=== PATIENT | female | born 1995 | race Caucasian/White ===

== ENCOUNTER 2020-12-16 11:05 | Outpatient (RCR) | payer BC, SELFPAY ==
[2020-12-16 12:41] LABS: Basophils Percent Auto 0.2 % (0.2-1.2); Eosinophils Absolute Auto 0.3 K/mm3 (0-0.3); Eosinophils Percent Auto 2.1 % (0-4.4); Hematocrit 34.1 % (37.0-47.0); Hemoglobin 11.2 g/dL (12.0-15.0); Immature Granulocyte Absolute 0.13 K/mm3 (0.00-0.031); Lymphocytes Absolute Auto 1.53 K/mm3 (0.9-3.2); Lymphocytes Percent Auto 11.8 % (18.3-44.2); Mean Corpuscular HGB Conc 32.8 g/dl (32-36); Mean Corpuscular Hemoglobin 29.4 pg (26-34); Mean Corpuscular Volume 89.5 fl (80-100); Mean Platelet Volume 9.9 fl (7.4-10.4); Monocytes Absolute Auto 0.7 K/mm3 (0.1-0.6); Monocytes Percent Auto 5.6 % (2.6-8.5); Neutrophils Absolute Auto 10.3 K/mm3 (1.3-6.7); Neutrophils Percent Auto 79.3 % (45.5-73.1); Platelet Count Result 301 k/mm3 (150-375); Red Blood Count 3.81 M/mm3 (4.2-5.4); Red Cell Distribution Width 13.5 % (11.5-14.5)
[2020-12-16 12:49] LABS: Glucose 1 Hour PP 50gm Dose 131 mg/dL
[2020-12-18] MEDS: RHO(D) IMMUNE GLOBULIN 300 MCG/2 ML SYRINGE IM (10:01)
== END 2021-03-16 23:59 | disposition home or self-care (01) ==
LOC: ANHLAB 11:05
PROVIDERS: Visit Provider Student in an Organized Health Care Education/Training Program
DX: Z29.13 Encounter for prophylactic Rho(D) immune globulin (principal); O36.0120 Maternal care for anti-D [Rh] antibodies, second trimester, not applicable or unspecified; Z3A.00 Weeks of gestation of pregnancy not specified
CPT/HCPCS: 36415; 82947; 85025; 85461; 90384; 96372; J2790

== ENCOUNTER 2021-01-04 08:00 | Outpatient (CLI) | payer BC, SELFPAY ==
[2021-01-04 09:00] LABS: Glucose Fasting Gestational 79 mg/dL (>/=95)
[2021-01-04 10:32] LABS: Glucose 1 Hour Gest 154 mg/dL (>/=180)
[2021-01-04 11:32] LABS: Glucose 2 Hour Gest 132 mg/dL (>/= 155)
[2021-01-04 12:45] LABS: Glucose 3 Hour Gest 102 mg/dL (>/=140)
== END 2021-01-04 08:01 | disposition home or self-care (01) ==
PROVIDERS: Visit Provider Student in an Organized Health Care Education/Training Program
DX: O24.419 Gestational diabetes mellitus in pregnancy, unspecified control (principal); Z3A.00 Weeks of gestation of pregnancy not specified
CPT/HCPCS: 36415; 82951; 82952

== ENCOUNTER 2021-01-20 10:08 | Outpatient (CLI) | payer BC, SELFPAY ==
[2021-01-20 11:04] LABS: Basophils Percent Auto 0.3 % (0.2-1.2); Eosinophils Absolute Auto 0.3 K/mm3 (0-0.3); Eosinophils Percent Auto 2.6 % (0-4.4); Hematocrit 34.7 % (37.0-47.0); Hemoglobin 11.3 g/dL (12.0-15.0); Immature Granulocyte Absolute 0.18 K/mm3 (0.00-0.031); Immature Granulocyte Percent A 1.4 % (0-0.5); Lymphocytes Absolute Auto 1.71 K/mm3 (0.9-3.2); Lymphocytes Percent Auto 13.3 % (18.3-44.2); Mean Corpuscular HGB Conc 32.6 g/dl (32-36); Mean Corpuscular Hemoglobin 29.1 pg (26-34); Mean Corpuscular Volume 89.4 fl (80-100); Mean Platelet Volume 10.3 fl (7.4-10.4); Monocytes Absolute Auto 1.1 K/mm3 (0.1-0.6); Monocytes Percent Auto 8.8 % (2.6-8.5); Neutrophils Absolute Auto 9.5 K/mm3 (1.3-6.7); Neutrophils Percent Auto 73.6 % (45.5-73.1); Platelet Count Result 315 k/mm3 (150-375); Red Blood Count 3.88 M/mm3 (4.2-5.4); Red Cell Distribution Width 13.8 % (11.5-14.5); White Blood Count 12.9 K/mm3 (4.5-10.0)
[2021-01-20 11:18] LABS: HIV 1/2 Ab P24 Ag Result Negative (Negative)
[2021-01-22 09:27] LABS: Rapid Plasma Reagin Non-Reactive (NonReactive)
== END 2021-01-20 10:09 | disposition home or self-care (01) ==
LOC: ANHLAB 10:11
PROVIDERS: Visit Provider Student in an Organized Health Care Education/Training Program
DX: Z34.93 Encounter for supervision of normal pregnancy, unspecified, third trimester (principal); Z3A.33 33 weeks gestation of pregnancy
CPT/HCPCS: 36415; 85025; 86592; 86703; G0432

== ENCOUNTER 2021-02-21 22:18 | Observation (INO) | payer BC, SELFPAY ==
[2021-02-21 23:16] VITALS: BP 113/61; PULSE 113
[2021-02-21 23:31] VITALS: BP 107/65; PULSE 115
[2021-02-21] MEDS: ONDANSETRON HCL ODT 4 MG TABLET PO (23:36)
[2021-02-21 23:46] VITALS: BP 118/68; PULSE 114
[2021-02-21 23:56] VITALS: BMI 46.0
--- NOTE | 2021-02-21 23:56 | LDADM ---
This patient, Salomon Salazar, was admitted to Labor/Delivery/Recovery 106 on 02/21/21 at 22:18. Plans for labor, pain management and were discussed with patient. Patient/family oriented to hospital policies and general routines including ID bracelet, bed and alarms, visiting hours, pain management, procedures, bathroom and other care routines, personal items, smoking policy, room service/diet and guest tray routines, security routines, and visiting hours. Patient/Family are encouraged to report perceived risks to care and to ask questions if they do not understand what they are told or what they should do. See OBIX for further documentation.
--- NOTE | 2021-03-29 17:42 | PM.OBTRLD ---
OB - Triage/Final Diagnosis Visit Information Comments/Additional reasons for admission: I have assessed the risk for this patient, Salomon Salazar, and determined that she would benefit from observation care. Final Diagnosis (1) Back pain affecting in third trimester: Code(s): O99.891 - Other specified diseases and conditions complicating ; M54.9 - Dorsalgia, unspecified Status: Acute
== END 2021-02-22 00:07 | disposition home or self-care (01) ==
PROVIDERS: Admitting Provider Student in an Organized Health Care Education/Training Program; Visit Provider Student in an Organized Health Care Education/Training Program
DX: O99.891 Other specified diseases and conditions complicating pregnancy (principal); M54.9 Dorsalgia, unspecified; Z3A.37 37 weeks gestation of pregnancy
CPT/HCPCS: A9270; G0378; G0379

== ENCOUNTER 2021-03-07 18:56 | Inpatient (IN) | payer BC, SELFPAY ==
--- NOTE | 2021-03-07 19:36 | PM.IMHP ---
H&P: HPI History of Present Illness Date/Time: 03/07/21 19:36 Patient is a 25yo LMP 06/04/20 currently 39w3d gestation with MINERVA 03/11/21. Patient is dated by US on 08/09/20 at 8w gestation. Patient presents to L&D for an elective induction of labor. course has been relatively uncomplicated, however, there is some concern for size greater than dates fetus. EFW >99% (4350g) on most recent ultrasound from 03/06/21. In general, patient reports feeling well. Denies any vaginal bleeding or leakage of fluid. Report occasional contractions and good movement. Chief Complaint: Induction of labor Review of Systems Review of Systems: All systems reviewed & are unremarkable except as noted in HPI and below Constitutional: Constitutional: Reports as per HPI, Reports no additional constitutional complaints, Denies chills, Denies fever(s), Denies headache(s) and Denies night sweats Eyes: Eyes: Reports as per HPI and Reports no additional eye complaints ENT: Reports system reviewed and no additional complaints, except as documented, Reports as per HPI, Reports Normal hearing present and Denies headache(s) Cardiovascular: Cardiovascular: Reports as per HPI, Reports no additional cardiovascular complaints, Denies chest pain and Denies dyspnea Respiratory: Respiratory: Reports as per HPI, Reports no additional respiratory complaints, Denies cough and Denies dyspnea Gastrointestinal: Gastrointestinal: Reports as per HPI, Reports no additional gastrointestinal complaints, Denies abdominal pain, Denies change in bowel habits, Denies change in stool character, Denies nausea and Denies vomiting Genitourinary: Genitourinary: Reports no additional female genitourinary complaints, Reports as per HPI, Denies abnormal vaginal bleeding, Denies genital lesions, Denies hot flashes, Denies dyspareunia, Denies pelvic pain, Denies sexual dysfunction, Denies urinary incontinence, Denies vaginal discharge, Denies vaginal dryness and Denies vaginal odor Musculoskeletal: Musculoskeletal: Reports no additional musculoskeletal complaints and Reports as per HPI Integumentary/Breasts: Skin/Breast: Reports system reviewed and no additional complaints, except as docu, Reports as per HPI, Denies breast pain and Denies nipple discharge Neurologic: Reports system reviewed and no additional complaints, except as documented, Reports as per HPI, Reports Normal hearing present and Denies headache(s) Psychiatric: Psychiatric: Reports no additional psychiatric complaints, Reports as per HPI, Denies anxiety and Denies depression Endocrine: Endocrine: Reports no additional endocrine complaints and Reports as per HPI Hematologic/Lymphatic: Hematologic/Lymphatic: Reports no additional hematologic/lymphatic complaints and Reports as per HPI Allergic/Immunologic: Allergic/Immunologic: Reports no additional allergic/immunologic complaints and Reports as per HPI PMFSH Past Medical History Medical History Seasonal allergies Surgical History Surgical History History of tonsillectomy and adenoidectomy Family History Family History Grandparent Hypertension Cerebrovascular accident Pancreatic cancer Mother Hypertension Cerebrovascular accident Father Hypertension Other Diabetes mellitus Social History Social History Smoking status: Never smoker Alcohol intake: former Substance use: never Gender identity (if verbalized by the patient): Female Spiritual care concerns: No Meds Home Medications and Allergies Home Medications Medication Instructions Recorded Confirmed Type loratadine 10 mg tablet 10 mg PO DAILY PRN 08/03/20 02/09/21 History prenat.vits,grey,fhu-[id number] 1 tablet PO DAILY 08/03/20 02/09/21 History acetaminophen 500 mg tablet 50
--- NOTE | 2021-03-07 19:47 | WPDHPUPDATE1 ---
History and Physical Update Update Date/Time: 03/07/21 19:47 History and Physical has been reviewed, including an updated exam of the patient. There are NO changes in the patient's condition. Risks, benefits, and alternatives have been discussed and questions answered. Patient agrees to proceed with procedure.
[2021-03-07] MEDS: DINOPROSTONE 10 MG VAG INSERT VAGINAL (20:00)
[2021-03-07 20:04] LABS: Basophils Percent Auto 0.2 % (0.2-1.2); Eosinophils Absolute Auto 0.3 K/mm3 (0-0.3); Eosinophils Percent Auto 2.1 % (0-4.4); Hematocrit 35.4 % (37.0-47.0); Hemoglobin 11.4 g/dL (12.0-15.0); Immature Granulocyte Absolute 0.07 K/mm3 (0.00-0.031); Immature Granulocyte Percent A 0.6 % (0-0.5); Lymphocytes Absolute Auto 1.42 K/mm3 (0.9-3.2); Lymphocytes Percent Auto 11.6 % (18.3-44.2); Mean Corpuscular HGB Conc 32.2 g/dl (32-36); Mean Corpuscular Hemoglobin 28.3 pg (26-34); Mean Corpuscular Volume 87.8 fl (80-100); Mean Platelet Volume 10.2 fl (7.4-10.4); Monocytes Absolute Auto 0.9 K/mm3 (0.1-0.6); Monocytes Percent Auto 7.3 % (2.6-8.5); Neutrophils Absolute Auto 9.5 K/mm3 (1.3-6.7); Neutrophils Percent Auto 78.2 % (45.5-73.1); Platelet Count Result 301 k/mm3 (150-375); Red Blood Count 4.03 M/mm3 (4.2-5.4); Red Cell Distribution Width 14.6 % (11.5-14.5); White Blood Count 12.2 K/mm3 (4.5-10.0)
[2021-03-07] MEDS: LACTATED RINGERS 1,000 ML 125 ML IV CONT (20:05)
[2021-03-07 20:15] VITALS: RESP 18; TEMP 36.9
--- NOTE | 2021-03-07 20:22 | P.PNAN_ITS ---
Anes - Eval Pre Procedure Procedure: labor epidural Date/Time: 03/07/21 20:22 Surgeon: shara Pre Op Diagnosis: IOL Patient Data Age: 25 Gender: F Height: Weight: Allergies Allergy/AdvReac Type Severity Reaction Status Date / Time Penicillins Allergy Intermediate Rash Verified 03/07/21 15:36 Home Medications Medication Instructions Recorded Confirmed Type loratadine 10 mg tablet 10 mg PO DAILY PRN 08/03/20 02/09/21 History prenat.vits,grey,[id number]-ravz-tmezg 1 tablet PO DAILY 08/03/20 02/09/21 History acetaminophen 500 mg tablet 500 mg PO Q6H PRN 11/08/20 02/09/21 History cholecalciferol (vitamin D3) 50 mcg PO DAILY 02/09/21 02/09/21 History [Vitamin D3] Laboratory Tests 03/07/21 03/07/21 19:47 19:48 WBC 12.2 K/mm3 H K/mm3 (4.5-10.0) RBC 4.03 M/mm3 L M/mm3 (4.2-5.4) Hgb 11.4 g/dL L g/dL (12.0-15.0) Hct 35.4 % L % (37.0-47.0) MCV 87.8 fl fl (80-100) MCH 28.3 pg pg (26-34) MCHC 32.2 g/dl g/dl (32-36) RDW 14.6 % H % (11.5-14.5) Plt Count 301 k/mm3 k/mm3 (150-375) MPV 10.2 fl fl (7.4-10.4) Immature Gran % (Auto) 0.6 % H % (0-0.5) Neut % (Auto) 78.2 % H % (45.5-73.1) Lymph % (Auto) 11.6 % L % (18.3-44.2) [place] % (Auto) 7.3 % % (2.6-8.5) Eos % (Auto) 2.1 % % (0-4.4) Baso % (Auto) 0.2 % % (0.2-1.2) Lymph # (Auto) 1.42 K/mm3 K/mm3 (0.9-3.2) [place] # (Auto) 0.9 K/mm3 H K/mm3 (0.1-0.6) Eos # (Auto) 0.3 K/mm3 K/mm3 (0-0.3) Baso # (Auto) 0.0 K/mm3 K/mm3 (0.0-0.1) Abs Immat Gran (auto) 0.07 K/mm3 H K/mm3 (0.00-0.031) Absolute Neuts (auto) 9.5 K/mm3 H K/mm3 (1.3-6.7) Absolute Nucleated RBC 0.0 K/mm3 K/mm3 (0.0-0.012) Nucleated RBC % 0.0 % % (0.0-0.2) RPR Pending Patient hx anesthesia problems: none Family hx anesthesia problems: none PMFSH Past Medical History Medical History Seasonal allergies Surgical History Surgical History History of tonsillectomy and adenoidectomy Family History Family History Grandparent Hypertension Cerebrovascular accident Pancreatic cancer Mother Hypertension Cerebrovascular accident Father Hypertension Other Diabetes mellitus Social History Social History Smoking status: Never smoker Alcohol intake: former Substance use: never Gender identity (if verbalized by the patient): Female Spiritual care concerns: No Exam Day of Procedure 03/07/21 20:22
[2021-03-07 20:29] VITALS: BMI 46.8
[2021-03-08] VITALS (176 sets, daily range): BP systolic 85–147; BP diastolic 41–114; PULSE 75–116; RESP 16–18; TEMP 36.6–37.4; O2SAT 97–100
[2021-03-08] MEDS: CLINDAMYCIN 900 MG/D5W 50 ML 900 MG/50 ML PIGGYBACK 50 MG IVPB ×3 (04:47→21:31)
[2021-03-08] MEDS: OXYTOCIN 30 UNITS/NS 500 ML 30 UNITS/500 ML BAG 6 UNITS IV CONT (08:38)
[2021-03-08] MEDS: LACTATED RINGERS 1,000 ML 125 ML IV CONT ×2 (12:10→21:32)
[2021-03-08 12:11] LABS: Rapid Plasma Reagin Non-Reactive (NonReactive)
[2021-03-08] MEDS: LORATADINE 10 MG TABLET PO (14:02)
--- NOTE | 2021-03-08 17:56 | P.PNOB_ITS ---
Pain Control Date/time seen: 03/08/21 17:56 Patient doing well. SROM clear fluid at approx. 5:40 p.m. SVE 4/60/-2. EFM 140/mod/+/-. [employer] shows occ ctx, however, may need IUPC for enhanced monitoring. Continue pitocin. Continuous EFM and toco. Pain management PRN.
[2021-03-08] MEDS: ONDANSETRON INJ 4 MG/2 ML VIAL IV PUSH (23:07)
[2021-03-09] VITALS (159 sets, daily range): BP systolic 60–162; BP diastolic 26–99; PULSE 87–166; RESP 16–20; TEMP 36.1–38.3; O2SAT 90–100
[2021-03-09] MEDS: OXYTOCIN 30 UNITS/NS 500 ML 30 UNITS/500 ML BAG 6 UNITS IV CONT (00:48)
[2021-03-09] MEDS: CLINDAMYCIN 900 MG/D5W 50 ML 900 MG/50 ML PIGGYBACK 50 MG IVPB (05:37)
--- NOTE | 2021-03-09 06:18 | PM.OBPNLAB ---
Pain Control Date/time seen: 03/09/21 06:18 Patient seen at bedside. SVE 6-7/80/-2. Despite more than 6 hours of pitocin, patient has made minimal cervical change. Lengthy discussion had with patient regarding labor course and limited progress with regards to both dilation as well as descensus of head, both of which had been previously discussed with patient. Recommendation made to proceed with delivery for arrest of dilation. Patient understands and agrees with plan. Anesthesia notified.
--- NOTE | 2021-03-09 07:01 | WPDANESEFPP ---
Anes - Eval Final PreProcedure Day of Procedure 03/09/21 07:01 Patient weight: morbidly obese Heart: regular rate and rhythm Lungs: clear to auscultation and normal air movement Airway: Mallampati scale class III Neurological: alert and oriented Last oral intake: >/= 8 hours ASA classification: III Emergent: no Anesthetic plan: proceed Anesthesia type and monitoring: regional epidural and standard monitoring Other findings: C -section - failure to progress Informed Consent: The patient's anesthetic plan and its attendant risks and benefits were discussed with the patient/family/POA. Questions were solicited and answers provided to the satisfaction of the patient/family/POA.
[2021-03-09] MEDS: ceFAZolin 3 GM/D5W 100 ML 100 ML IVPB (07:48)
--- NOTE | 2021-03-09 09:01 | W.PM.PROC2 ---
Procedure Note - Detailed Date of Procedure 03/09/21 Pre-op Diagnosis Intrauterine at 39w5d gestation Arrest of dilation Post-op Diagnosis same Procedure Performed Primary low transverse section via Pfannenstiel Surgeon Arlene Umanzor MD Surveillance Director [place] Anesthesia epidural Findings Live male infant in cephalic presentation, weighing 7 lbs. 8 oz, apgars 9/9, minimal amount of clear amniotic fluid noted; normal appearing uterus, ovaries, and fallopian tubes bilaterally Description of Procedure The patient was taken to the operating room, where she was transferred to the operating room table. The patient was placed in dorsal supine position with a leftward tilt. She was prepped and draped in the usual sterile fashion. Epidural anesthesia that was previously administered was tested and found to be adequate. A Pfannenstiel skin incision was made with a scalpel and carried through to underlying layer of fascia with the Bovie. The fascia was incised in the midline and the incision was extended laterally with the use of forceps and Reynolds scissors. The inferior aspect of the fascial incision was grasped with Jada clamps, elevated, and the underlying rectus muscle were dissected off with Reynolds scissors. Attention was then turned to the superior aspect of the fascial incision, which in a similar manner, was grasped with Jada clamps, elevated, and the underlying rectus muscles were also dissected off with Reynolds scissors. The rectus muscles were in the midline and the peritoneal cavity was entered bluntly. This incision was extended superiorly and inferiorly with good visualization of the bladder and care was taken to avoid blood vessels. A bladder blade was inserted. The vesicouterine peritoneum was identified and incised sharply with Metzenbaum scissors. This incision was extended laterally with Metzenbaum scissors and a bladder flap was created digitally. The bladder blade was replaced. A low-transverse uterine incision was made with a scalpel. This incision was extended laterally with bandage scissors. Amniotomy was performed. A minimal amount of clear amniotic fluid was noted. The 's head was grasped and gently guided to the level of the uterine incision. The infant's head was delivered easily and atraumatically without difficulty followed by the neck, shoulders, and rest of body with gentle fundal pressure. A nuchal cord x 1 was noted and reduced. The infant's nose and mouth were suctioned bulb suction. The was crying spontaneously. The cord was clamped and cut and the infant was handed off to waiting nursing staff. A segment of cord was collected for cord gases. Cord blood was also collected. The placenta was then delivered manually. Uterus was exteriorized and cleared of all clots and debris. The uterus was noted be extremely boggy and bleeding profusely. Vigorous massage was performed with little improvement. The uterine incision was reapproximated with 0 Vicryl in a running, locked fashion. As the uterine incision was being reapproximated, the patient received Methergine, Hemabate, and Tranexamic Acid in addition to compression and massage. Eventually, uterine atony resolved. A second imbricating layer using 0 Monocryl performed. Excellent hemostasis was noted. On inspection, the uterus, ovaries, and fallopian tubes appeared to be normal bilaterally. The uterus was replaced into the abdominal cavity. A small area of bleeding beneath the uterine incision was bleeding. This area was made hemostatic with a figure of eight suture using 0 Monocryl. The gutters were cleared of all clots and debris. The uterine incision was inspected again and noted to be hemostatic. Hemaderm was applied across the uterine incision. Interceed was also applied across the uterine incision and anterior surface of the uterus. The peritoneum was reapproximated with 2-0 Monocryl. The fascia was then closed with 0 Vicryl in a running fashion. The subcutaneous la
[2021-03-09] MEDS: OXYTOCIN 30 UNITS/NS 500 ML 30 UNITS/500 ML BAG 125 UNITS IV CONT (09:24)
--- NOTE | 2021-03-09 10:50 | PC.NURSE ---
Attempted to call report to pp nurse. No room assigned at this time, will return call when bed available.
--- NOTE | 2021-03-09 11:10 | PC.NURSE ---
Pt recovery completed. Pt moved to viewing room via stretcher to let family visit see baby through windows. FOB and infant with pt. Call light within reach. Instructed to call out with any needs.
--- NOTE | 2021-03-09 12:40 | PC.NURSE ---
Report called to Barbie SWEENEY. Pt going to room 281 for pp care. Pt waiting on one more family member to come to window then will move upstairs.
--- NOTE | 2021-03-09 13:35 | PC.NURSE ---
Pt moved to room 281 at this time. Belongings, infant and chart all moved up together.
[2021-03-09] MEDS: POLYSACCHARIDE IRON COMPLEX 150 MG CAPSULE PO (17:46)
[2021-03-09] MEDS: SIMETHICONE 80 MG TAB.CHEW PO (17:46)
[2021-03-09] MEDS: DOCUSATE SODIUM 100 MG CAPSULE PO (17:46)
[2021-03-09] MEDS: HYDROcodone/acetaminophen (*CRX) 10-325 MG TABLET 1 TAB PO (17:46)
[2021-03-09] MEDS: DEXTROSE 5%/0.45% SOD CHL 1,000 ML 125 ML IV CONT (19:30)
[2021-03-09] MEDS: HYDROcodone/acetaminophen (*CRX) 5-325 MG TABLET 1 TAB PO (22:00)
[2021-03-09] MEDS: IBUPROFEN 600 MG TABLET PO (22:00)
[2021-03-10 00:04] VITALS: BP 101/48; PULSE 95; RESP 16; TEMP 36.4; O2SAT 97
[2021-03-10 04:50] VITALS: BP 113/57; PULSE 88; RESP 16; TEMP 36.1; O2SAT 97
[2021-03-10 05:07] LABS: Basophils Percent Auto 0.2 % (0.2-1.2); Eosinophils Absolute Auto 0.2 K/mm3 (0-0.3); Eosinophils Percent Auto 1.6 % (0-4.4); Hematocrit 26.4 % (37.0-47.0); Hemoglobin 8.4 g/dL (12.0-15.0); Immature Granulocyte Absolute 0.07 K/mm3 (0.00-0.031); Immature Granulocyte Percent A 0.5 % (0-0.5); Lymphocytes Absolute Auto 1.74 K/mm3 (0.9-3.2); Lymphocytes Percent Auto 12.6 % (18.3-44.2); Mean Corpuscular HGB Conc 31.8 g/dl (32-36); Mean Platelet Volume 10.7 fl (7.4-10.4); Monocytes Absolute Auto 1.4 K/mm3 (0.1-0.6); Monocytes Percent Auto 10.4 % (2.6-8.5); Neutrophils Absolute Auto 10.3 K/mm3 (1.3-6.7); Neutrophils Percent Auto 74.7 % (45.5-73.1); Platelet Count Result 263 k/mm3 (150-375); Red Cell Distribution Width 14.9 % (11.5-14.5); White Blood Count 13.8 K/mm3 (4.5-10.0)
[2021-03-10] MEDS: HYDROcodone/acetaminophen (*CRX) 5-325 MG TABLET 1 TAB PO ×3 (06:00→19:40)
[2021-03-10] MEDS: IBUPROFEN 600 MG TABLET PO ×3 (06:00→19:39)
--- NOTE | 2021-03-10 07:49 | P.PNOB_ITS ---
OB - PN: Subj Subjective Date/time seen: 03/10/21 07:49 Patient doing well this AM. Pain well controlled with medication. Denies any headache, chest pain, SOB, N/V. Tolerating PO diet. Hammond catheter still in place. Scant lochia. No flatus yet. Limited ambulation. OB - PN: Obj Data Labs CBC & Chem 7: 03/10/21 04:14 Labs: Laboratory Results - last 24 hr 03/10/21 03/10/21 04:14 04:14 WBC 13.8 H RBC 3.00 L Hgb 8.4 L D Hct 26.4 L MCV 88.0 MCH 28.0 MCHC 31.8 L RDW 14.9 H Plt Count 263 MPV 10.7 H Immature Gran % (Auto) 0.5 Neut % (Auto) 74.7 H Lymph % (Auto) 12.6 L [place] % (Auto) 10.4 H Eos % (Auto) 1.6 Baso % (Auto) 0.2 Lymph # (Auto) 1.74 [place] # (Auto) 1.4 H Eos # (Auto) 0.2 Baso # (Auto) 0.0 Abs Immat Gran (auto) 0.07 H Absolute Neuts (auto) 10.3 H Absolute Nucleated RBC 0.0 Nucleated RBC % 0.0 Blood Type AB Negative Antibody Screen TNP Baby's Blood Type A pos Baby's LUISA Negative OB - PN A/P Assessment and Plan (1) Delivery by section of full-term infant: Code(s): O82 - Encounter for delivery without indication Status: Acute Assessment and Plan: POD#1 doing well continue routine postoperative care encourage ambulation and use of IS dc hammond this AM continue current pain management (2) Anemia: Code(s): D64.9 - Anemia, unspecified Status: Acute Assessment and Plan: Hgb 8.4 patient currently asymptomatic continue iron supplementation Time Spent With Patient Time: Total time spent is greater than 50% in coordination of care (as documented) at patient's floor/unit and/or counseling patient: Exam Const: General: cooperative, healthy appearing, comfortable and no acute distress GI: Inspection: obesity GI Palp: Yes Soft to palpation and Yes Tenderness to palpation present (GI) (appropriately tender) Other: fundus firm below umbilicus, inc covered with bandage, bandage c/d/i Extrem: Right lower extremity: edema Details: 1+ Left lower extremity: edema Details: 1+ Other: no calf tenderness, SCDs in place
[2021-03-10] MEDS: SIMETHICONE 80 MG TAB.CHEW PO ×2 (12:16→19:39)
[2021-03-10] MEDS: MULTIVIT/MIN/PREN/FOL AC/IRON TABLET 1 TAB PO (12:16)
[2021-03-10] MEDS: DOCUSATE SODIUM 100 MG CAPSULE PO ×2 (12:17→17:09)
[2021-03-10] MEDS: POLYSACCHARIDE IRON COMPLEX 150 MG CAPSULE PO ×2 (12:17→17:10)
[2021-03-10] MEDS: HYDROcodone/acetaminophen (*CRX) 10-325 MG TABLET 1 TAB PO ×2 (12:18→23:15)
[2021-03-10 13:00] VITALS: PULSE 88; RESP 16; O2SAT 97
--- NOTE | 2021-03-10 14:05 | WPDANLDPN2 ---
Anes-Prog Note L&D Date/Time: 03/10/21 14:05 Comfortable throughout: section Neuraxial method: spinal Epidural/Spinal procedure site: clean & non-tender Neuro status: Neuro function grossly intact. Cardiovascular status: normal Respiratory status: normal Airway patency: baseline Mental status: baseline Post-Op hydration status: normal Vital Signs: Last Vital Signs Temp 36.1 C L 03/10/21 04:50 Pulse 88 03/10/21 13:00 Resp 16 03/10/21 13:00 BP 113/57 L 03/10/21 04:50 Pulse Ox 97 03/10/21 13:00 Pain score (VAS): 09/10 I/O: Intake & Output 03/09/21 03/10/21 03/10/21 23:59 07:59 15:59 Intake Total 637 426 5696 Output Total 200 1700 2725 Balance [phone] Post-procedural complaints: none Patient feedback: Patient satisfied with anesthetic care.
--- NOTE | 2021-03-10 14:06 | WPDANLDNPN2 ---
Anes-Prog Note L&D-Neuraxial Date/Time: 03/10/21 14:06 Neuraxial medications: intrathecal PF morphine Opiod-related complaints: none Patient feedback: Patient satisfied with post-operative pain management.
[2021-03-10] MEDS: RHO(D) IMMUNE GLOBULIN 300 MCG/2 ML SYRINGE IM (17:34)
[2021-03-10 19:40] VITALS: BP 120/72; PULSE 97; RESP 16; TEMP 36.5
[2021-03-11] MEDS: HYDROcodone/acetaminophen (*CRX) 10-325 MG TABLET 1 TAB PO (05:10)
[2021-03-11] MEDS: IBUPROFEN 600 MG TABLET PO ×2 (05:10→11:55)
[2021-03-11 07:25] VITALS: BP 122/76; PULSE 92; RESP 16; TEMP 36.4; O2SAT 98
--- NOTE | 2021-03-11 10:48 | PM.OBPNVD ---
OB - PN: Subj Subjective Date/time seen: 03/11/21 10:48 She states she has adequate pain control. Positive flatus. Ambulating without problems. Tolerating regular food. OB - PN: Obj Data Labs CBC & Chem 7: 03/10/21 04:14 Labs: Laboratory Results - last 24 hr 03/10/21 04:14 Blood Type AB Negative Antibody Screen TNP Screen Negative Baby's Blood Type A pos Baby's LUISA Negative Doses of RhIg Required 1 OB - PN A/P Assessment and Plan (1) Delivery by section of full-term infant: Code(s): O82 - Encounter for delivery without indication Status: Acute Assessment and Plan: 1.POD2 doing well. 2.Will discharge home today. 3. Discussed discharge precautions. (2) Anemia: Code(s): D64.9 - Anemia, unspecified Status: Acute Assessment and Plan: 1. Asymptomatic. 2. She will continue iron supplementation at home. Time Spent With Patient Time: Total time spent is greater than 50% in coordination of care (as documented) at patient's floor/unit and/or counseling patient: Exam Const: General: comfortable and no acute distress Resp: Effort & Inspection: normal respiratory effort GI: Other: fundus below umbilicus,appropriate tenderness, firm. Incision clean dry and intact Extrem: General: no calf tenderness bilaterally Psych: Mental Status: mental status grossly normal Affect: normal affect
--- NOTE | 2021-03-11 10:52 | PM.OBDSVD ---
DS: Admitting Diagnosis Admitting Diagnosis Admitting Diagnosis: Induction of labor. DS: Discharge Diagnosis Discharge Diagnosis (1) Failure to progress in labor: Code(s): O62.2 - Other uterine inertia Status: Acute (2) Anemia: Code(s): D64.9 - Anemia, unspecified Status: Acute OB - DS: Summary Hospital Course Hospital Course: Patient admitted on for induction of labor. PNC significant for LGA by ultrasound. Cervidil was intiated and she was started on Clindamycin for GBS carrier. Labor significant for failure to progress for which a primary ceserean section was performed. Post operatively she did well. She had asymptomatic anemia. On POD 2 she was doing well, ambulating without problems, had adequate pain control and decreasing lochia. She was tolerating regular food. She was discharged to home on POD2. Discharge precautions provided. She had OB Procedures : Ultrasound OB Procedures Intrapartum: OB Procedures: : None Peripartum Data Delivery Method: Section Procedures: Procedures Operation Date: 03/09/21 07:30 Actual Procedure Side Surgeon p Section Arlene Umanzor MD complications: none Status at Discharge Functional status at discharge: independent ambulation Time Spent with Patient Time attestation: Total time spent providing and/or coordinating discharge services: Exam Const: General: cooperative Orientation/consciousness: oriented to person, oriented to place and oriented to time HENMT: General nose exam: Normal external nose present Eyes: General: appearance normal, both eyes and all related structures Resp: Effort & Inspection: normal respiratory effort GI: Inspection: normal to inspection Skin: General skin exam: normal color Neuro: General: oriented to person, oriented to place and oriented to time Extrem: General: normal to inspection and no calf tenderness Psych: Appearance: grossly normal Mental Status: mental status grossly normal DS: Data Data Completed and Pending Labs on day of discharge: Labs from last 24 hours 03/10/21 04:14 Blood Type AB Negative Antibody Screen TNP Screen Negative Baby's Blood Type A pos Baby's LUISA Negative Doses of RhIg Required 1 Discharge Plan Discharge Attending physician on discharge: Arlene Umanzor Consulting providers: Aruna Willingham Discharging Clinician: Derick Cohen Anticipated Discharge Date/Time: 03/11/21 11:03 Patient Disposition: Home, Self-Care Activity: may shower, no straining, may drive after 2 weeks and pelvic rest Diet: regular Wound Care Instructions: incision open to air Discharge Instructions: Pelvic rest for 4-6 weeks. May take over the counter Ibuprofen 600mg every 6 hours as needed for pain. Take prescription pain medication for pain not relieved with Motrin. Take iron supplement daily. May take over the counter Slofe daily. May take over the counter Colace for stool softener until regular bowel movements. Call if saturating more than a pad an hour, leg redness, pain and swelling, temperature>100.4. No strenuous activity. Patient Instructions: Antibiotic Form Stand Alone Forms: General Discharge Information Follow-up/Referrals: Arlene Umanzor MD [Physician] - Call for Appointment Discharge Medications: New hydrocodone-acetaminophen 5-325 mg Tablet 1 tablet PO Q3H PRN (Reason: Moderate Pain (4-6)) Qty: 30 RF: 0 Continued acetaminophen [Tylenol Extra Strength] 500 mg tablet 500 mg PO Q6H PRN (Reason: Headache) RF: 0 prenat.vits,grey,nfr-lfqo-tsezf Tablet 1 tablet PO DAILY RF: 0 loratadine [Claritin] 10 mg tablet 10 mg PO DAILY PRN (Reason: allergy symptoms) RF: 0 cholecalciferol (vitamin D3) [Vitamin D3] 50 mcg (2,000 unit) Tablet 50 mcg PO DAILY RF: 0 Date of admission: 03/07/21 18:56 Primary Care Provider: PHYSICIAN,FITTER MECHANIC Admitt
[2021-03-11] MEDS: MULTIVIT/MIN/PREN/FOL AC/IRON TABLET 1 TAB PO (11:54)
[2021-03-11] MEDS: HYDROcodone/acetaminophen (*CRX) 5-325 MG TABLET 1 TAB PO (11:54)
[2021-03-11] MEDS: POLYSACCHARIDE IRON COMPLEX 150 MG CAPSULE PO (11:54)
[2021-03-11] MEDS: DOCUSATE SODIUM 100 MG CAPSULE PO (11:55)
[2021-03-14 10:30] VITALS: BP 144/89; PULSE 76; RESP 20; TEMP 36.8; O2SAT 98
== END 2021-03-11 12:12 | disposition home or self-care (01) | DRG 787 ==
LOC: ANHLDR 19:43 → ANHOB2 03-11 11:04 → ANHLDR 03-14 10:36 → ANHOB2 03-14 10:36
PROVIDERS: Admitting Provider Student in an Organized Health Care Education/Training Program; Visit Provider Obstetrics & Gynecology
PROC: 10D00Z1 Extraction of Products of Conception, Low, Open Approach (ICD-10-PCS; CPT 59514; principal; 2021-03-09 07:30)
DX: O36.63X0 Maternal care for excessive fetal growth, third trimester, not applicable or unspecified (principal); O36.0930 Maternal care for other rhesus isoimmunization, third trimester, not applicable or unspecified; Z37.0 Single live birth; Z3A.39 39 weeks gestation of pregnancy; O99.824 Streptococcus B carrier state complicating childbirth; O69.81X0 Labor and delivery complicated by cord around neck, without compression, not applicable or unspecified; O99.214 Obesity complicating childbirth; E66.01 Morbid (severe) obesity due to excess calories; O99.02 Anemia complicating childbirth; D64.9 Anemia, unspecified; O62.2 Other uterine inertia
CPT/HCPCS: 36415; 85025; 85461; 86592; 86850; 86880; 86900; 86901; 90384; A9270; J0690; J1885; J2210; J2274; J2405; J2590; J2790; J7120